=== PATIENT | female | born 1955 | race Caucasian/White ===

== ENCOUNTER 2018-07-09 10:49 | Inpatient (IN) | payer MEDICARE, OTHER ==
[2018-07-09] MEDS: DICYCLOMINE 20 MG INJ IM (12:00)
[2018-07-09] MEDS: FAMOTIDINE 20 MG INJ IV (12:00)
[2018-07-09] MEDS: SOD CHLORIDE 0.9% 1,000 ML IV ×2 (12:00→13:29)
[2018-07-09] MEDS: ONDANSETRON 4 MG INJ IV (12:00)
[2018-07-09 12:19] LABS: ADD MAN DIFF? NO
[2018-07-09 12:21] LABS: ABNORMAL IP MESSAGE 1; BASOPHILS % 0.1 % (0.0-2.0); HEMATOCRIT 41.8 % (37.0-47.0); LYMPHOCYTES # 1.5 10^3/ul (0.8-2.9); LYMPHOCYTES % 6.7 % (15.0-51.0); MEAN CORPUSCULAR HEMOGLOBIN 31.6 pg (29.0-33.0); MEAN CORPUSCULAR HGB CONC 35.9 g/dl (32.0-37.0); MEAN CORPUSCULAR VOLUME 88.2 fl (82.0-101.0); MEAN PLATELET VOLUME 9.7 fl (7.4-10.4); MONOCYTE # 1.7 10^3/ul (0.3-0.9); MONOCYTES % 7.8 % (0.0-11.0); NEUTROPHIL # 18.9 10^3/ul (1.6-7.5); NEUTROPHILS % 84.9 % (39.0-77.0); PLATELET COUNT 411 10^3/UL (140-415); RED BLOOD COUNT 4.74 10^6/ul (4.20-5.40); RED CELL DISTRIBUTION WIDTH 12.1 % (11.5-14.5)
[2018-07-09 12:21] LABS: WHITE BLOOD COUNT 22.2 10^3/ul (4.8-10.8)
[2018-07-09 12:25] LABS: POSITIVE DIFF @See below
[2018-07-09 12:39] LABS: ALANINE AMINOTRANSFERASE 32 IU/L (13-69); ALBUMIN 5.2 g/dl (3.3-4.9); ALBUMIN/GLOBULIN RATIO 1.62; ALKALINE PHOSPHATASE 108 IU/L (42-121); ANION GAP 21 (5-13); ASPARTATE AMINO TRANSFERASE 43 IU/L (15-46); BILIRUBIN,INDIRECT 1.3 mg/dl (0-1.1); BILIRUBIN,TOTAL 1.3 mg/dl (0.2-1.3); BLOOD UREA NITROGEN 44 mg/dl (7-20); CALCIUM 10.3 mg/dl (8.4-10.2); CARBON DIOXIDE 34 mmol/L (21-31); CHLORIDE 84 mmol/L (97-110); CREATININE 0.84 mg/dl (0.44-1.00); Estimated GFR > 60 mL/min (>60); GLUCOSE 143 mg/dl (70-220); LIPASE 40 U/L (23-300); SODIUM 139 mmol/L (135-144); TOTAL PROTEIN 8.4 g/dl (6.1-8.1)
[2018-07-09 12:47] LABS: POTASSIUM 2.7 mmol/L (3.5-5.1)
[2018-07-09] MEDS: morphine 4 MG/ML VIAL IV (13:29)
[2018-07-09] MEDS: POTASSIUM CHLORIDE 50 ML IVPB ×3 (13:46→15:24)
[2018-07-09] MEDS ORDERED: ACETAMINOPHEN 325 MG TAB PO ×2 (14:00→16:30)
[2018-07-09] MEDS ORDERED: ONDANSETRON 4 MG INJ IV ×2 (14:00→16:30)
[2018-07-09] MEDS: POTASSIUM CHLORIDE 20 MEQ POWDER FOR ORAL SOLN PO (15:40)
[2018-07-09] MEDS ORDERED: NACL 0.9% 3 ML SYG IV (16:30)
[2018-07-09] MEDS ORDERED: LORAZEPAM 0.5 MG TAB PO (16:30)
[2018-07-09] MEDS: HYDROCODONE/APAP (5/325) TAB PO (17:10)
[2018-07-09 17:44] LABS: MAGNESIUM 1.7 mg/dl (1.7-2.5)
[2018-07-09 17:44] LABS: PHOSPHORUS 3.4 mg/dl (2.5-4.9)
[2018-07-09] MEDS: POTASSIUM CHLORIDE 30 MEQ in SOD CHLORIDE 0.9% 1,000 ML IV (18:03)
[2018-07-09] MEDS: QUETIAPINE 100 MG TAB PO (20:34)
[2018-07-09] MEDS: ZOLPIDEM 5 MG TAB PO (20:35)
[2018-07-10] MEDS: POTASSIUM CHLORIDE 30 MEQ in SOD CHLORIDE 0.9% 1,000 ML IV ×4 (01:02→21:04)
[2018-07-10] MEDS: HYDROCODONE/APAP (5/325) TAB PO ×2 (05:56→17:42)
[2018-07-10 06:00] LABS: ADD MAN DIFF? NO
[2018-07-10 06:08] LABS: BASOPHILS % 0.2 % (0.0-2.0); EOSINOPHILS % 0.1 % (0.0-7.0); HEMATOCRIT 34.3 % (37.0-47.0); HEMOGLOBIN 11.4 g/dl (12.0-16.0); LYMPHOCYTES # 1.7 10^3/ul (0.8-2.9); LYMPHOCYTES % 18.4 % (15.0-51.0); MEAN CORPUSCULAR HEMOGLOBIN 31.7 pg (29.0-33.0); MEAN CORPUSCULAR HGB CONC 33.2 g/dl (32.0-37.0); MEAN CORPUSCULAR VOLUME 95.3 fl (82.0-101.0); MONOCYTE # 0.8 10^3/ul (0.3-0.9); MONOCYTES % 8.4 % (0.0-11.0); NEUTROPHIL # 6.9 10^3/ul (1.6-7.5); NEUTROPHILS % 72.6 % (39.0-77.0); PLATELET COUNT 258 10^3/UL (140-415); RED CELL DISTRIBUTION WIDTH 12.4 % (11.5-14.5)
[2018-07-10 06:08] LABS: WHITE BLOOD COUNT 9.5 10^3/ul (4.8-10.8)
[2018-07-10 06:44] LABS: ANION GAP 10 (5-13); BLOOD UREA NITROGEN 28 mg/dl (7-20); CALCIUM 8.4 mg/dl (8.4-10.2); CARBON DIOXIDE 31 mmol/L (21-31); CHLORIDE 103 mmol/L (97-110); CREATININE 0.73 mg/dl (0.44-1.00); Estimated GFR > 60 mL/min (>60); GLUCOSE 92 mg/dl (70-220); MAGNESIUM 1.9 mg/dl (1.7-2.5); PHOSPHORUS 2.9 mg/dl (2.5-4.9); POTASSIUM 3.6 mmol/L (3.5-5.1); SODIUM 144 mmol/L (135-144)
[2018-07-10 06:57] LABS: HEMOGLOBIN A1C 5.2 % (0-5.9)
[2018-07-10] MEDS: QUETIAPINE 100 MG TAB PO ×2 (08:50→21:34)
[2018-07-10] MEDS: morphine 4 MG/ML VIAL IV ×3 (11:39→20:46)
[2018-07-10] MEDS: PANTOPRAZOLE 40 MG INJ IV (17:43)
[2018-07-11] MEDS: morphine 4 MG/ML VIAL IV ×2 (01:31→08:35)
[2018-07-11] MEDS: POTASSIUM CHLORIDE 30 MEQ in SOD CHLORIDE 0.9% 1,000 ML IV ×3 (03:43→15:15)
[2018-07-11] MEDS: HYDROCODONE/APAP (5/325) TAB PO ×3 (03:51→20:02)
[2018-07-11] MEDS: PANTOPRAZOLE 40 MG INJ IV (06:05)
[2018-07-11 06:38] LABS: ANION GAP 8 (5-13); BLOOD UREA NITROGEN 12 mg/dl (7-20); CALCIUM 8.6 mg/dl (8.4-10.2); CARBON DIOXIDE 25 mmol/L (21-31); CHLORIDE 109 mmol/L (97-110); CREATININE 0.69 mg/dl (0.44-1.00); Estimated GFR > 60 mL/min (>60); GLUCOSE 91 mg/dl (70-220); MAGNESIUM 1.8 mg/dl (1.7-2.5); PHOSPHORUS 2.8 mg/dl (2.5-4.9); POTASSIUM 4.2 mmol/L (3.5-5.1); SODIUM 142 mmol/L (135-144)
[2018-07-11] MEDS: QUETIAPINE 100 MG TAB PO ×2 (08:38→21:11)
[2018-07-11] MEDS ORDERED: AL HYDROX/MG HYDROX/SIMETH 30 ML CUP PO (11:30)
[2018-07-11] MEDS: SUCRALFATE (100 MG/ML) 10ML CUP PO ×3 (13:45→20:02)
[2018-07-11] MEDS: ZOLPIDEM 5 MG TAB PO (22:15)
[2018-07-12] MEDS: morphine 4 MG/ML VIAL IV (00:27)
[2018-07-12] MEDS: HYDROCODONE/APAP (5/325) TAB PO ×2 (05:53→12:17)
[2018-07-12] MEDS: PANTOPRAZOLE 40 MG INJ IV (05:53)
[2018-07-12] MEDS: POTASSIUM CHLORIDE 30 MEQ in SOD CHLORIDE 0.9% 1,000 ML IV ×2 (05:58→19:52)
[2018-07-12] MEDS: QUETIAPINE 100 MG TAB PO ×2 (08:24→20:48)
[2018-07-12] MEDS: SUCRALFATE (100 MG/ML) 10ML CUP PO ×4 (08:24→20:48)
[2018-07-12] MEDS: ZOLPIDEM 5 MG TAB PO (22:00)
[2018-07-13] MEDS ORDERED: LORAZEPAM 2 MG INJ IV
[2018-07-13] MEDS: LORAZEPAM 4 MG/ML VIAL IV (00:13)
[2018-07-13] MEDS: HYDROCODONE/APAP (5/325) TAB PO ×2 (03:13→15:31)
[2018-07-13] MEDS: PANTOPRAZOLE 40 MG INJ IV ×2 (06:11→17:09)
[2018-07-13] MEDS: POTASSIUM CHLORIDE 30 MEQ in SOD CHLORIDE 0.9% 1,000 ML IV (07:00)
[2018-07-13] MEDS: QUETIAPINE 100 MG TAB PO ×2 (09:00→20:43)
[2018-07-13] MEDS: SUCRALFATE (100 MG/ML) 10ML CUP PO ×4 (09:00→20:43)
[2018-07-13] MEDS ORDERED: hydrALAzine 20 MG INJ (14:05)
[2018-07-13] MEDS: hydrALAzine 20 MG INJ IV (14:16)
[2018-07-13] MEDS ORDERED: METOCLOPRAMIDE 10 MG INJ IV (14:30)
[2018-07-13] MEDS ORDERED: LABETALOL HCL 20MG INJ IV (14:30)
[2018-07-13] MEDS ORDERED: ONDANSETRON 4 MG INJ IV (14:30)
[2018-07-13] MEDS ORDERED: EPHEDrine SULFATE 50 MG/5 ML SYG IV (14:30)
[2018-07-13] MEDS ORDERED: FENTAnyl 50 MCG/ML VIAL IV (14:30)
[2018-07-13] MEDS: PROPOFOL 20 ML (15:13)
[2018-07-13] MEDS: METOCLOPRAMIDE 10 MG INJ IV ×2 (15:17→18:08)
[2018-07-14] MEDS: POTASSIUM CHLORIDE 30 MEQ in SOD CHLORIDE 0.9% 1,000 ML IV (00:03)
[2018-07-14] MEDS: METOCLOPRAMIDE 10 MG INJ IV ×3 (05:26→11:38)
[2018-07-14] MEDS: PANTOPRAZOLE 40 MG INJ IV (05:26)
[2018-07-14] MEDS: SUCRALFATE (100 MG/ML) 10ML CUP PO ×2 (08:31→13:10)
[2018-07-14] MEDS: HYDROCODONE/APAP (5/325) TAB PO (08:31)
[2018-07-14] MEDS: QUETIAPINE 100 MG TAB PO (08:32)
[2018-09-01] MEDS ORDERED: ARISTADA IM (09:00)
== END 2018-07-14 14:50 | disposition home or self-care (01) | DRG 381 ==
LOC: E/R 10:49 → PP2 13:53
PROC: 0DB18ZX Excision of Upper Esophagus, Via Natural or Artificial Opening Endoscopic, Diagnostic (ICD-10-PCS; principal; 2018-07-13 11:45)
PROC: 0DB78ZX Excision of Stomach, Pylorus, Via Natural or Artificial Opening Endoscopic, Diagnostic (ICD-10-PCS; 2018-07-13 11:45)
DX: K22.10 Ulcer of esophagus without bleeding (principal); E87.2 Acidosis; K21.0 Gastro-esophageal reflux disease with esophagitis; R11.10 Vomiting, unspecified; E86.0 Dehydration; E87.6 Hypokalemia; K44.9 Diaphragmatic hernia without obstruction or gangrene; K29.00 Acute gastritis without bleeding; F31.9 Bipolar disorder, unspecified; G25.81 Restless legs syndrome
CPT/HCPCS: 36415; 74176; 80048; 80053; 83036; 83605; 83690; 83735; 84100; 85025; 87040; 88305; 88312; 88313; 90686; 96372; 96374; 96375; 99285-25

== ENCOUNTER 2018-09-20 09:05 | Emergency (ER) | payer MEDICARE, OTHER ==
[2018-09-20] MEDS: PANTOPRAZOLE (EC) 40 MG TAB PO (10:17)
[2018-09-20] MEDS: LIDOCAINE/MYLANTA 40 ML BTL PO (10:17)
[2018-09-20] MEDS: ONDANSETRON (ODT) 4 MG TAB ODT (10:17)
== END 2018-09-20 11:12 | disposition home or self-care (01) ==
LOC: E/R 09:05
DX: K20.9 Esophagitis, unspecified (principal); J02.9 Acute pharyngitis, unspecified
CPT/HCPCS: 99283